=== PATIENT | female | born 1945 | race Caucasian/White ===

== ENCOUNTER → 2017-10-15 | Outpatient (CLI) | payer OTHER ==
[2017-10-15 13:21] LABS: BLOOD UREA NITROGEN 22 mg/dl (7-18); BUN/CREATININE RATIO 20.1 (10-20); CALCIUM 9.3 mg/dl (8.5-10.1); CARBON DIOXIDE 27 mmol/L (21-32); CHLORIDE 107 mmol/L (98-107); CHOLESTEROL 202 mg/dl (0-200); CREATININE 1.07 mg/dl (0.60-1.20); GLUCOSE 92 mg/dl (70-99); POTASSIUM 4.3 mmol/L (3.5-5.1); SODIUM 139 mmol/L (136-145)
[2017-10-15 13:25] LABS: CHOLESTEROL/HDL RATIO 3.9; HDL CHOLESTEROL 52 mg/dl; LDL CHOLESTEROL CALCULATED 113 mg/dl; TRIGLYCERIDES 186 mg/dl (0-150); VERY LOW DENSITY LIPOPROT CALC 37 mg/dl
== END | disposition home or self-care (01) ==
LOC: C.LABPBG 09:57
PROVIDERS: ATTEND Family Medicine
DX: E78.5 Hyperlipidemia, unspecified (principal); I10 Essential (primary) hypertension

== ENCOUNTER → 2018-03-12 | Outpatient (CLI) | payer OTHER | END | disposition home or self-care (01) | LOC: C.LABSPEC 17:05 | PROVIDERS: ATTEND Family Medicine | DX: R39.9 Unspecified symptoms and signs involving the genitourinary system (principal) ==

== ENCOUNTER 2025-02-19 17:19 | Inpatient (IN) ==
[2025-02-19 19:02] LABS: Appearance Urine Clear (Clear); Bacteria Urine Automated 4+ (None Seen); Bilirubin Urine Negative (Negative); Blood Urine 2+ (Negative); Color Urine Yellow; Glucose Urine UA Negative (Negative); Ketones Urine Negative (Negative); Leukocyte Esterase Urine 3+ (Negative); Nitrite Urine Positive (Negative); Protein Urine Negative (Negative); Specific Gravity Urine 1.019 (1.000-1.030); Urobilinogen Urine Negative (Negative); WBC Urine Automated >50 /hpf (0-5)
[2025-02-19 19:02] LABS: Basophils # (auto) 0.04 K/uL (0.00-0.20); Basophils % (auto) 0.3 %; Eosinophils % (auto) 1.7 %; Hematocrit (blood only) 38.7 % (37.0-47.0); Hemoglobin 12.8 g/dl (12.0-16.0); Immature Granulocytes # (auto) 0.03 K/uL (0.01-0.20); Immature Granulocytes % (auto) 0.3 %; Lymphocytes % (auto) 8.6 %; Mean Corpuscular Hemoglobin 30.1 pg (25.0-34.0); Mean Corpuscular Hgb Conc 33.1 g/dL (32.0-36.0); Mean Corpuscular Volume 91.1 fL (80.0-100.0); Mean Platelet Volume 9.6 fL (9.4-12.4); Monocytes % (auto) 7.8 %; Neutrophils # (auto) 9.43 K/uL (1.40-6.50); Neutrophils % (auto) 81.3 %; Platelet Count 204 K/uL (130-400); RDW Coefficient of Variation 13.7 % (11.5-14.5); RDW Standard Deviation 45.6 fL (36.4-46.3); Red Blood Count 4.25 M/uL (4.20-5.40)
[2025-02-19 19:07] LABS: Alanine Aminotransferase 11 U/L (7-52); Albumin Globulin Ratio 1.4 (0.9-2); Albumin Level 4.9 gm/dl (3.4-5.0); Alkaline Phosphatase 71 U/L (34-104); Anion Gap 10 (3-11); Aspartate Aminotransferase 17 U/L (13-39); BUN Creatinine Ratio 25.9 (10-20); Bilirubin,Total 0.4 mg/dl (0.2-1.0); Blood Urea Nitrogen 29 mg/dl (6-23); Calcium 9.5 mg/dl (8.6-10.3); Carbon Dioxide 21 mmol/L (21-32); Chloride 108 mmol/L (98-107); Creatinine Clr Calc Pharmacy 35.2 ml/min; Globulin 3.4 gm/dl (2.5-4.0); Glucose 102 mg/dl (70-99(Fasting)); Lipase 35 U/L (11-82); Potassium 3.7 mmol/L (3.5-5.1); Sodium 139 mmol/L (136-145); Total Protein 8.3 gm/dl (6.0-8.3)
[2025-02-19 19:14] LABS: Troponin I High Sensitivity < 2.3 pg/ml (0-14)
--- NOTE | 2025-02-19 19:26 | Emergency Department Note ---
Impression & Plan Acute GI bleeding, Syncope ED Provider Note Diagnosis: Syncope, GI bleed Disposition: Admission CHIEF COMPLAINT: GI bleed HPI: Patient is an 79-year-old female presenting with complaint of GI bleeding. Patient states her symptoms started yesterday. Patient states multiple episodes of bowel movements with bright red blood present. Patient denies being on any blood thinners. Patient states this made her lightheaded and she had an episode of passing out at home. Patient denies any chest pain or shortness of breath. Patient having lower abdominal pain at this time. PAST MEDICAL HISTORY: See Below PAST SURGICAL HISTORY: See Below SOCIAL HISTORY: See Below HOME MEDICATIONS: See Below ALLERGIES: See Below VITALS: See Below PHYSICAL EXAMINATION: GENERAL: Well appearing, well nourished, NAD, non-toxic. EYE EXAM: Normal conjunctiva. OROPHARYNX: Moist mucus membranes. Grossly normal dentition. Left TM clear NECK: Supple, LUNGS: Clear to auscultation. Normal chest wall mechanics. HEART: NSR ABDOMEN: Abdomen soft, mild tenderness lower abdomen BACK: No CVA TTP. SKIN: No rashes and no bruising. UPPER EXTREMITIES: Upper extremities are grossly normal LOWER EXTREMITIES: Grossly normal, no edema. NEURO EXAM: A&O x3,, normal speech, moves all 4 extremities PSYCH: Cooperative MEDICAL DECISION MAKING: History obtained from: Patient ER Course: Patient is a 79-year-old female presenting with 24 hours of GI bleeding. Patient states has been having bright red blood per rectum. Patient is not on any blood thinners. Patient is hemodynamically stable. Patient's hemoglobin is normal. Patient while in the emergency room had multiple episodes of bowel movement of bright red blood. Patient had CT scan performed of abdomen pelvis which shows colitis. Patient had a lactate level that was negative. Patient's urinalysis is equivocal. Patient's case discussed with hospital service for admission. They will evaluate the patient and decide on if antibiotics are needed for colitis. Labs (independently interpreted) are significant for: Stable hemoglobin EKG interpretation (independently interpreted): Normal sinus rhythm no ST segment elevation or depression Medications given: Normal saline bolus Consultants: Hospitalist Triage Nursing notes reviewed and agree them. Vital Signs: reviewed and remarkable for: no significant abnormalities Past Med/Surg History Problem List (Updated 02/19/25 @ 21:31 by George Taylor DO) Syncope (Acute) Acute GI bleeding (Acute) Asymptomatic microscopic hematuria Insomnia Stage 3b chronic kidney disease Vitamin D deficiency Benign essential hypertension Hyperlipidemia (Chronic) History of basal cell carcinoma (Acute) CKD (chronic kidney disease) stage 3, GFR 30-59 ml/min (Acute) HTN, goal below 150/90 (Chronic) Medical History Hypertension Surgical History H/O lumpectomy H/O removal of cyst Family History Sister Breast cancer Father Heart disease Other Colon cancer Denies family history of Ovarian cancer Prostate cancer Myocardial infarction Social History Smoking Status: Never smoker Second Hand Exposure: No; Do You Dip or Chew Tobacco: No; Hx Alcohol Use: No Hx Substance Use: No Preferred Language: Andorran Visual Impairment: Partially Limited Hearing Ability: Normal Supervisor Assembling Required: No Beliefs That Will Affect Care: None marital status: / Current Living Situation: Alone current occupational status: retired How many Children do You have: 3 Feels Safe at Home: Yes Childhood Exposure to Second-Hand Smoke: No Diet: regular caffeine: Yes (tea) during the past year weight has: remained stable Dental Care, Regularly: Yes Physical Activity Frequency: Does not Exercise Seatbelt Use: always Sunscreen Use: Yes Do you think of yourself as: straight/heterosexual Allergies Allergies Allergy/AdvReac Type Severity Reaction Status Date / Time No Known Allergies Allergy Verified 02/12/25 13:56 Home Meds Home Medications Medication Instructions Recorded Confirmed biotin 10,000 mcg capsule 10,000 mcg PO DIRECTED 11/07/21 02/19/25 cranberry 500 mg capsule 1,000 mg PO DAILY 05/08/22 02/19/25 Vegetable/Fruit Supplement 1 dose PO DAILY 11/25/23 02/19/25 melatonin 10 mg tablet 10 mg PO HS 01/06/25 02/19/25 keratin 500 mg PO DIRECTED 02/19/25 02/19/25 trazodone 50 mg tablet 50 mg PO HS PRN insomnia 02/19/25 02/19/25 Previous Rx's Medication Instructions Recorded amlodipine 5 mg tablet 5 mg PO DAILY #90 tabs 05/27/24 lisinopril 40 mg tablet 40 mg PO DAILY #90 tabs 02/12/25 Results & Data (ED) Vital Signs Vital Signs - 24 hr 02/19/25 17:21 02/19/25 17:53 02/19/25 18:00 Temperature 36.1 C L Temperature Source Temporal Artery Scan Pulse Rate 106 H 86 Pulse Rate from SpO2 Sensor Respiratory Rate 18 Respiratory Effort / Characteristics Non-Labored Respiratory Depth Normal Blood Pressure 166/77 H 128/66 Blood Pressure Mean 106 110 Pulse Oximetry 96 Oxygen Delivery Method Room Air Sepsis Recent Fever Within 48 Hours No Sepsis New/Unexplained Change in Mental Status No Sepsis Action Taken by Nursing No Action Required 02/19/25 18:00 02/19/25 18:12 02/19/25 18:30 Temperature Temperature Source Pulse Rate 83 93 H Pulse Rate from SpO2 Sensor 82 93 H Respiratory Rate 20 18 Respiratory Effort / Characteristics Respiratory Depth Blood Pressure 145/70 H Blood Pressure Mean 114 Pulse Oximetry 96 97 Oxygen Delivery Method Sepsis Recent Fever Within 48 Hours Sepsis New/Unexplained Change in Mental Status Sepsis Action Taken by Nursing 02/19/25 18:41 02/19/25 19:36 02/19/25 20:15 Temperature Temperature Source Pulse Rate 82 87 Pulse Rate from SpO2 Sensor 84 87 Respiratory Rate 21 20 Respiratory Effort / Characteristics Respiratory Depth Blood Pressure 139/75 148/66 H Blood Pressure Mean 96 93 Pulse Oximetry 97 97 95 Oxygen Delivery Method Room Air Room Air Room Air Sepsis Recent Fever Within 48 Hours Sepsis New/Unexplained Change in Mental Status Sepsis Action Taken by Nursing 02/19/25 20:30 Temperature Temperature Source Pulse Rate 90 Pulse Rate from SpO2 Sensor Respiratory Rate 16 Respiratory Effort / Characteristics Respiratory Depth Blood Pressure 138/63 Blood Pressure Mean 83 Pulse Oximetry 96 Oxygen Delivery Method Room Air Sepsis Recent Fever Within 48 Hours Sepsis New/Unexplained Change in Mental Status Sepsis Action Taken by Nursing Laboratory Data 02/19/25 17:45 02/19/25 17:45 Lab Results 02/19/25 02/19/25 02/19/25 Range/Units 17:45 17:47 20:59 WBC 11.60 H (4.8-10.8) K/ul RBC 4.25 (4.20-5.40) M/uL Hgb 12.8 (12.0-16.0) g/dl Hct 38.7 (37.0-47.0) % MCV 91.1 (80.0-100.0) fL MCH 30.1 (25.0-34.0) pg MCHC 33.1 (32.0-36.0) g/dL RDW Std Deviation 45.6 (36.4-46.3) fL RDW Coeff of Neptali 13.7 (11.5-14.5) % Plt Count 204 (130-400) K/uL MPV 9.6 (9.4-12.4) fL Immature Gran % (Auto) 0.3 % Neut % (Auto) 81.3 % Lymph % (Auto) 8.6 % [place] % (Auto) 7.8 % Eos % (Auto) 1.7 % Baso % (Auto) 0.3 % Neut # (Auto) 9.43 H (1.40-6.50) K/uL Lymph # (Auto) 1.00 L (1.20-3.40) K/uL [place] # (Auto) 0.90 H (0.11-0.59) K/uL Eos # (Auto) 0.20 (0.00-0.50) K/uL Baso # (Auto) 0.04 (0.00-0.20) K/uL Immature Gran # (Auto) 0.03 (0.01-0.20) K/uL PT Cancelled INR Cancelled Sodium 139 (136-145) mmol/L Potassium 3.7 (3.5-5.1) mmol/L Chloride 108 H (98-107) mmol/L Carbon Dioxide 21 (21-32) mmol/L Anion Gap 10 (3-11) BUN 29 H (6-23) mg/dl Creatinine 1.12 (0.6-1.2) mg/dl Est Cr Clr Drug Dosing 35.2 ml/min eGFR 49.40 BUN/Creatinine Ratio 25.9 H (10-20) Glucose 102 H (70-99(Fasting)) mg/dl Lactate 0.6 (0.4-2.0) mmol/L Calcium 9.5 (8.6-10.3) mg/dl Total Bilirubin 0.4 (0.2-1.0) mg/dl AST 17 (13-39) U/L ALT 11 (7-52) U/L Alkaline Phosphatase 71 (34-104) U/L Troponin I High Sens < 2.3 (0-14) pg/ml Total Protein 8.3 (6.0-8.3) gm/dl Albumin 4.9 (3.4-5.0) gm/dl Globulin 3.4 (2.5-4.0) gm/dl Albumin/Globulin Ratio 1.4 (0.9-2) Lipase 35 (11-82) U/L Urine Color Yellow Urine Appearance Clear (Clear) Urine pH 5.0 (4.5-7.5) Ur Specific [place] 1.019 (1.000-1.030) Urine Protein Negative (Negative) Urine Glucose (UA) Negative (Negative) Urine Ketones Negative (Negative) Urine Blood 2+ H (Negative) Urine Nitrite Positive A (Negative) Urine Bilirubin Negative (Negative) Urine Urobilinogen Negative (Negative) Ur Leukocyte Esterase 3+ H (Negative) Urine WBC (Auto) >50 H (0-5) /hpf Urine RBC (Auto) 11-20 H (0-2) /hpf U Hyaline Cast (Auto) 3-5 H (0-2) /lpf U Epithel Cells (Auto) 6-10 H (0-2) /hpf Urine Bacteria (Auto) 4+ H (None Seen) Blood Type A Positive Administered Medications Discontinued Medications Acetaminophen (Acetaminophen 325 Mg Tab) 650 mg PO NOW STA Stop: 02/19/25 21:16 Last Admin: 02/19/25 21:24 Dose: 650 mg Documented By: ABHISHEK Sodium Chloride (Nss) 1,000 mls @ 999 mls/hr IV .Q1H1M STA Stop: 02/19/25 19:38 Last Infusion: 02/19/25 21:24 Dose: Infused Documented By: Admin: 02/19/25 19:36 Dose: 999 mls/hr Documented By: CARLIE Ioversol (Optiray 320 100ml) 92 ml IV ONCE ONE Stop: 02/19/25 19:52 Last Admin: 02/19/25 19:51 Dose: 92 ml Documented By: EDK Imaging Data Radiologist's Impression: Abdomen/Pelvis CT 02/19/25 18:38 EXAM: CT Abdomen and Pelvis With Intravenous Contrast INDICATION: Abdominal pain. Bright red blood per rectum this morning. Weakness. TECHNIQUE: Axial computed tomography images of the abdomen and pelvis with intravenous contrast. Sagittal and coronal reformatted images were created and reviewed. This CT exam was performed using one or more of the following dose reduction techniques: automated exposure control, adjustment of the mA and/or kV according to patient size, and/or use of iterative reconstruction technique. CONTRAST: 92ml of Optiray 320 was administered intravenously. COMPARISON: No relevant prior studies available. FINDINGS: Limitations: None. Lung bases: Minimal scarring in the lung bases. Tiny granuloma in the right lower lobe. Pleural space: No basilar pleural effusion. Heart: No abnormality noted. Mediastinum: No abnormality noted. ABDOMEN: Liver: No abnormality noted. Gallbladder and bile ducts: There may be a very tiny gallstone. No ductal dilatation or calcification. Pancreas: Homogeneous enhancement. No mass, inflammation or ductal dilation. Spleen: Innumerable granulomata noted in the spleen which is normal size. Adrenals: No significant abnormality noted. Kidneys and ureters: Normal enhancement. No mass, hydronephrosis or visualized stone. Stomach and bowel: There are innumerable diverticula in the left colon most numerous in the sigmoid. The colon is moderately thickened circumferentially from the splenic flexure to the sigmoid. Mild pericolonic inflammation about the left colon noted. No pneumatosis or obstruction. No definite acute gastrointestinal hemorrhage. PELVIS: Appendix: No findings to suggest acute appendicitis. Bladder: No filling defects to suggest mass or large stone. No inflammation. Reproductive: Incidental irregular cyst in this region of the cervix likely a complex nabothian cyst. ABDOMEN and PELVIS: Intraperitoneal space: No free air. No significant fluid collection. Bones/joints: No acute changes. Soft tissues: Umbilical hernia containing fat. Vasculature: Atherosclerotic calcification of the aorta and branches. No aneurysm. Lymph nodes: No pathologically enlarged lymph nodes. IMPRESSION: 1. There is moderate circumferential thickening from the splenic flexure to the sigmoid colon most likely reflecting infectious colitis rather than long segment diverticulitis. Ischemic colitis not completely excluded but thought less likely. There is no perforation, abscess or obstruction. 2. There may be a tiny gallstone. ACT 112: Positive. There are findings on this exam that require communication between the performing entity and the patient following Patient Test Result Information Act ([place] ACT 112) guidelines. Electronically signed by Sunni Camargo 02-19-2025 8:25 PM Discharge Plan Visit Data Chief Complaint: Rectal Bleed Stated Complaint: BLEEDING OUT MY BOWELS ED Provider: George Taylor Discharge Problem: Acute GI bleeding, Syncope Forms Stand Alone Forms: [facility] Prescriptions Prescriptions: No Action cranberry 500 mg capsule 1,000 mg PO DAILY Rx Instructions: otc unable to verify administer with meals Vegetable/Fruit Supplement 1 dose PO DAILY Rx Instructions: otc unable to verify melatonin 10 mg tablet 10 mg PO HS Rx Instructions: also takes 5 mg with it 02/19-otc unable to verify biotin 10,000 mcg capsule 10,000 mcg PO DIRECTED Rx Instructions: otc unable to verify amlodipine 5 mg tablet 5 mg PO DAILY Qty: 90 3RF lisinopril 40 mg tablet 40 mg PO DAILY Qty: 90 1RF trazodone 50 mg tablet 50 mg PO HS PRN (Reason: insomnia) Rx Instructions: TAKE 1 TABLET BY MOUTH AT BEDTIME NEEDED FOR SLEEP PRN; keratin 500 mg PO DIRECTED Rx Instructions: otc unable to verify Referrals Referrals: Livier Horn MD [Primary Care Provider] -
[2025-02-19] MEDS: SODIUM CHLORIDE 0.9% 1,000 ML IV STA (19:36)
[2025-02-19] MEDS: OPTIRAY 320 100ml IV ONE (19:51)
--- NOTE | 2025-02-19 20:25 | CT Scan Report ---
EXAM: CT Abdomen and Pelvis With Intravenous Contrast INDICATION: Abdominal pain. Bright red blood per rectum this morning. Weakness. TECHNIQUE: Axial computed tomography images of the abdomen and pelvis with intravenous contrast. Sagittal and coronal reformatted images were created and reviewed. This CT exam was performed using one or more of the following dose reduction techniques: automated exposure control, adjustment of the mA and/or kV according to patient size, and/or use of iterative reconstruction technique. CONTRAST: 92ml of Optiray 320 was administered intravenously. COMPARISON: No relevant prior studies available. FINDINGS: Limitations: None. Lung bases: Minimal scarring in the lung bases. Tiny granuloma in the right lower lobe. Pleural space: No basilar pleural effusion. Heart: No abnormality noted. Mediastinum: No abnormality noted. ABDOMEN: Liver: No abnormality noted. Gallbladder and bile ducts: There may be a very tiny gallstone. No ductal dilatation or calcification. Pancreas: Homogeneous enhancement. No mass, inflammation or ductal dilation. Spleen: Innumerable granulomata noted in the spleen which is normal size. Adrenals: No significant abnormality noted. Kidneys and ureters: Normal enhancement. No mass, hydronephrosis or visualized stone. Stomach and bowel: There are innumerable diverticula in the left colon most numerous in the sigmoid. The colon is moderately thickened circumferentially from the splenic flexure to the sigmoid. Mild pericolonic inflammation about the left colon noted. No pneumatosis or obstruction. No definite acute gastrointestinal hemorrhage. PELVIS: Appendix: No findings to suggest acute appendicitis. Bladder: No filling defects to suggest mass or large stone. No inflammation. Reproductive: Incidental irregular cyst in this region of the cervix likely a complex nabothian cyst. ABDOMEN and PELVIS: Intraperitoneal space: No free air. No significant fluid collection. Bones/joints: No acute changes. Soft tissues: Umbilical hernia containing fat. Vasculature: Atherosclerotic calcification of the aorta and branches. No aneurysm. Lymph nodes: No pathologically enlarged lymph nodes. IMPRESSION: 1. There is moderate circumferential thickening from the splenic flexure to the sigmoid colon most likely reflecting infectious colitis rather than long segment diverticulitis. Ischemic colitis not completely excluded but thought less likely. There is no perforation, abscess or obstruction. 2. There may be a tiny gallstone. ACT 112: Positive. There are findings on this exam that require communication between the performing entity and the patient following Patient Test Result Information Act ([place] ACT 112) guidelines. Electronically signed by Sunni Camargo 02-19-2025 8:25 PM
[2025-02-19] MEDS: ACETAMINOPHEN 325 MG TAB PO STA (21:24)
[2025-02-19 21:57] LABS: Prothrombin Time 11.1 Seconds (9.0-12.0)
[2025-02-19] MEDS ORDERED: ONDANSETRON INJ 2 MG/ML 2 ML VIAL IV PRN (23:07)
--- OUTSIDE RECORDS SUMMARY | 2025-02-19 23:15 | External Medical Summary | Summary of Care ---
Author Name Unknown Organization [facility] Address [address] [place] [address] Phone [phone] Care Team Providers Care Sap Crm Developer Name Role Phone Livier Horn MD Primary Care Provider Reason for Visit * Reason Onset Date Comments Advice 02/04/2025 Encounter Details Date Type Department Care Team (Late st Contact Info) Description 02/04/2025 Telephone MOHS Surgery [facility] [address] [place] [address] Services, Scheduling [address] [place] [address] Advice Allergies No known active allergiesdocumented as of this encounter (statuses as of 02/17/2025) Medications traZODone (DESYREL) 50 MG TabletIndication s:Insomnia, unspecified Take 1 Tab by mouth bedtime. 30 Tab 5 5 Active Lisinopril 40 MG Tablet One pill by mouth once a day for blood pressure. To pharmacy: Please discontinue 20mg dose. TZ 30 Tab 5 5 Active spironolactone (ALDACTONE) 25 MG Tablet Take 25 mg by mouth daily. Active amLODIPine (NORVASC) 5 MG Tablet Take 5 mg by mouth daily. Active Biotin 1000 MCG Tablet Take 1,000 mcg by mouth daily. Active documented as of this encounter (statuses as of 02/17/2025) Active Problems Problem Noted Date Diagnosed Date Basal cell carcinoma of skin of other parts of f maribel 09/10/2011 Overview (08/12/2017): ICD-10 update of inactive term Insomnia 03/27/2007 Overview (08/12/2017): ICD-10 update of inactive term LOCAL SUPRFICIAL SWELLNG 06/22/2004 GENERAL OSTEOARTHROSIS 02/18/2003 HTN, goal below 140/90 11/30/1996 Menopause Mucous polyp of cervix documented as of this encounter (statuses as of 02/17/2025) Resolved Problems Problem Noted Date Diagnosed Date Resolved Date Acute cystitis 08/02/2010 09/24/2024 Overview (09/24/2024): historical ADVANCE DIRECTIVE INFORMATION 03/21/2006 09/14/2024 Overview (03/21/2006): No, Advance Directive brochure given to patient at prior appointment. Other acute otitis externa 0 01/06/2009 Overview (01/06/2009): Resolved per Benign Acute Dxs Protocol #3 documented as of this encounter (statuses as of 02/17/2025) Immunizations Name Administration Dates Next Due Pneumococcal Polysaccharide PPV23 (Pneumovax) 03/05/2011(Deferred: Patient Refused) Seasonal Influenza Vac., MDV , IM, 0.5 mL (Fluzone) 03/05/2011(Deferred: Patient Refused) TDAP, Age 7 and older, IM (Adacel) 03/30/2008 documented as of this encounter Social History Tobacco Use Types Packs/Day Years Used Date Smoking Tobacco: Never Smokeless Tobacco: Never Alcohol Use Standard Drinks/Week Comments No 0 (1 standard drink = 0.6 oz pur e alcohol) Comments No Sex and Gender Information Value Date Recorded Sex Assigned at Not on file Legal Sex Female 5:54 AM EST Gender Identity Not on file Sexual Orientation Not on file documented as of this encounter Miscellaneous Notes * Telephone Encounter - Denise Alcantar OSA - 02/17/2025 8:59 AM EDT Pt calling regarding the Mohs Surgery appointment. Please call back on home #. Loni belcher * Telephone Encounter - Gosia Page OSA - 02/15/2025 2:03 PM EDT Patient needs to be called on 02/16/2025 between 7:30AM and 12PM * Telephone Encounter - Atul Abarca OSA - 02/04/2025 10:28 AM EDT Patient called in to schedule her mohs appointment. Patient will be away this afternoon. Please advise Beset call back [phone] documented in this encounter Plan of Treatment Health Maintenance Due Date Last Done Comments Depression Screening 1957 Albumin/Creatinine Ratio 1961 Pneumococcal Vaccine: 50+ Years (1 of 1 - PCV) 1993 Zoster Vaccines (1 of 2) 1993 GFR 10/23/2017 10/23/2016, 09/13, 12/29/2014, Additional history exists DTap/Tdap Vaccines (2 - Td or Tdap) 03/30/2018 03/30/2008 DXA Scan 06/13/2023 06/13/2016, 07/12, 05/09/2009 COVID-19 Vaccine ( season) 2024 Influenza Vaccine (FLU shot) (Season Ended) 2025 HPV (Gardasil) Vaccine Aged Out No lo nger eligible based on patient's age to complete this topic Hepatitis B Vaccine Aged Out No longe r eligible based on patient's age to complete this topic MENINGOCOCCAL (MENACTRA/MENVEO) Aged Out No longer eligible based on patient's age to complete this topic Meningitis B Vaccine (Bexsero/Trumemba) Aged Out No longer eligible based on patient's age to complete this topic documented as of this encounter Medical Devices Not on filedocumented as of this encounter Care Teams Sap Crm Developer Relationship Specialty Start Date End Date Livier Horn MD [address] [place] [address] [place] [address] PCP - General Family Medicine 07/12/15 documented as of this encounter
--- OUTSIDE RECORDS SUMMARY | 2025-02-19 23:15 | External Medical Summary | Summary of Care ---
Author Name Unknown Organization [facility] Address [address] [place] [address] Phone [phone] Care Team Providers Care District Sales Manager Name Role Phone Livier Horn MD Primary Care Provider Reason for Visit * Reason Onset Date Comments Advice 02/04/2025 Encounter Details Date Type Department Care Team (Late st Contact Info) Description 02/04/2025 Telephone [facility] [address] [place], [place] [id number] Services, Scheduling [address] [place] [address] Advice Allergies No known active allergiesdocumented as of this encounter (statuses as of 02/15/2025) Medications traZODone (DESYREL) 50 MG TabletIndication s:Insomnia, [...] as of this encounter (statuses as of 02/15/2025) Active Problems Problem Noted Date Diagnosed Date Basal cell carcinoma of skin of other parts of f maribel 09/10/2011 Overview (08/12/2017): ICD-10 update of inactive term Insomnia 03/27/2007 Overview (08/12/2017): ICD-10 update of inactive term LOCAL SUPRFICIAL SWELLNG 06/22/2004 GENERAL OSTEOARTHROSIS 02/18/2003 HTN, goal below 140/90 11/30/1996 Menopause Mucous polyp of cervix documented as of this encounter (statuses as of 02/15/2025) Resolved Problems Problem Noted Date Diagnosed Date Resolved Date Acute cystitis 08/02/2010 09/24/2024 Overview (09/24/2024): historical ADVANCE DIRECTIVE INFORMATION 03/21/2006 09/14/2024 Overview (03/21/2006): No, Advance Directive brochure given to patient at prior appointment. Other acute otitis externa 0 01/06/2009 Overview (01/06/2009): Resolved per Benign Acute Dxs Protocol #3 documented as of this encounter (statuses as of 02/15/2025) Immunizations Name Administration Dates Next Due Pneumococcal [...] encounter Miscellaneous Notes * Telephone Encounter - Gosia Page OSA - 02/15/2025 2:03 PM EDT Patient needs to be called on 02/16/2025 between 7:30AM and 12PM * Telephone Encounter - Atul Abarca OSA - 02/04/2025 10:28 AM EDT Patient called in to schedule her mohs appointment. Patient will be away this afternoon. Please advise Beset call back [phone] documented in this encounter Plan of Treatment Health Maintenance Due Date Last Done Comments Depression Screening 1955 Albumin/Creatinine Ratio 1961 Pneumococcal Vaccine: 50+ Years (1 of 1 - PCV) 1993 Zoster Vaccines (1 of 2) 1993 GFR 10/23/2017 10/23/2016, 09/13, 12/29/2014, Additional history exists DTap/Tdap Vaccines (2 - Td or Tdap) 03/30/2018 03/30/2008 DXA Scan 06/13/2023 06/13/2016, 07/12, 05/09/2009 COVID-19 Vaccine ( - season) 2024 Influenza Vaccine (FLU shot) (Season [...] filedocumented as of this encounter Care Teams District Sales Manager Relationship Specialty Start Date End Date Livier Horn MD [address] [place] [address] PCP - General Family Medicine 07/12/15 documented as of this encounter
--- OUTSIDE RECORDS SUMMARY | 2025-02-19 23:15 | External Medical Summary | Summary of Care ---
Author Name Unknown Organization [facility] Address [address] [place] [address] Phone [phone] Care Team Providers Care Construction Sales Representative Name Role Phone Livier Horn MD Primary Care Provider Reason for Visit * Reason Onset Date Comments Advice 02/04/2025 Encounter Details Date Type Department Care Team (Late st Contact Info) Description 02/04/2025 Telephone MOHS Surgery [facility] [address] [place] [address] Services, Scheduling [address] [place] [address] Advice Allergies No known active allergiesdocumented as [...] Telephone Encounter - Gosia Page OSA - 02/17/2025 2:43 PM EDT LMOM for patient to call back to schedule Mohs Surgery * Telephone Encounter - Simi Alcantar OSA - 02/17/2025 8:59 AM EDT Pt calling regarding the Mohs Surgery appointment. Please call back on home #. [phone] [id number] * Telephone Encounter - Gosia Page OSA - 02/15/2025 2:03 PM EDT Patient needs to be called on 02/16/2025 between 7:30AM and 12PM * Telephone Encounter - Atul Abarca OSA - 02/04/2025 10:28 AM EDT Patient called in to schedule her mohs appointment. Patient will be away this afternoon. Please advise Beset call back [phone] documented in this encounter Plan of Treatment Upcoming Encounters Date Type Department Care Team (Late st Contact Info) Description 03/17/2025 8:15 AM EDT Office Visit MOHS Surgery [facility] [address] [place] [address] Ernestina Bocanegra MD [address] [place] [phone] Health Maintenance Due Date Last Done Comments [...] filedocumented as of this encounter Care Teams Construction Sales Representative Relationship Specialty Start Date End Date Livier Horn MD [address] [place] [address], [place] [address] PCP - General Family Medicine 07/12/15 documented as of this encounter
[2025-02-19] MEDS: traZODone HCL 50 MG TAB PO PRN (23:49)
[2025-02-19] MEDS: MELATONIN 3 MG TAB PO SCH (23:50)
[2025-02-20 00:35] LABS: Hematocrit (blood only) 33.2 % (37.0-47.0); Hemoglobin 11.2 g/dl (12.0-16.0)
--- NOTE | 2025-02-20 01:08 | History & Physical Report ---
Date of Service February 19, 2025 Assessment & Plan (1) Acute GI bleeding: (2) Benign essential hypertension: Plan 79-year-old female with history of hypertension, hyperlipidemia, CKD presenting with lower abdominal pain and passage of bright red blood per rectum. Patient hemodynamically stable. Hgb = 12.8, HCT = 38.7. BUN = 29 #Acute GI bleedsuspect lower GI bleed. Patient is hemodynamically stable at present. Hgb = 12.8, HCT = 38.7. CT with findings as above, significant for segment of colon with possible colitis versus diverticulitis. Ischemic colitis not completely excluded but thought less likely. Lactate is within normal limits. Patient has history of diverticulosis with diverticular bleed in 2011. Admit to PCU Maintain n.p.o. Maintain 2 large-bore IVs Trend hemoglobin and hematocrit every 8 hours. Transfuse for ongoing bleed, symptomatic anemia or hemoglobin less than 8. Consent obtained is in on chart Stool PCR ordered Will initiate Zosyn 4.5 g IV every 8 for now given possibility of acute diverticulitis. Patient with mild leukocytosis with WBC = 11.6 with elevated neutrophil to lymphocyte ratio. Likely secondary to stress from acute bleed however, will cover for now Zofran as needed for nausea Tylenol as needed for pain GI consultation appreciated #Hypertensionblood pressure stable Will hold amlodipine and lisinopril for now in setting of active bleed Continue to monitor Admission and Anticipated Discharge Date Admission Date: February 19, 2025 History of Present Illness Chief Complaint: GI bleed Primary Care Provider: Livier Horn MD Claudia Wagner is an 79-year-old female with history of hypertension, hyperlipidemia, CKD presenting with diarrhea and bright red blood per rectum. Patient reports that on 02/19/2025 AM at 01:00 she woke with crampy, lower abdominal pain. She went to the bathroom and had watery diarrhea. She did not check to see if there is blood in her stool at that time. She continued to have severe lower abdominal pain and had a syncopal event which patient thinks is secondary to her pain. She called her daughter who came to the house. Patient then had a bowel movement that was liquid stool with bright red blood. Patient continued to have crampy lower abdominal pain followed by additional bloody bowel movements. Cramping relieved by bowel movement. Patient denies chest pain, shortness of breath, lightheadedness. Denies nausea/vomiting/hematemesis or coffee-ground emesis. No recent steroid use, NSAID use, antiplatelet or anticoagulation. No alcohol use. Patient does report having a lower GI bleed in 2011 secondary to diverticulosis. Last colonoscopy performed in 2016, unremarkable In the ER patient afebrile, hemodynamically stable (heart rate mildly elevated at 90) ER course: normal saline x 1 L Allergies Allergy/AdvReac Type Severity Reaction Status Date / Time No Known Allergies Allergy Verified 02/12/25 13:56 Home Medications Medication Instructions Recorded Confirmed Type biotin 10,000 mcg capsule 10,000 mcg PO DIRECTED 11/07/21 02/19/25 History cranberry 500 mg capsule 1,000 mg PO DAILY 05/08/22 02/19/25 History Vegetable/Fruit Supplement 1 dose PO DAILY 11/25/23 02/19/25 History amlodipine 5 mg tablet 5 mg PO DAILY #90 tabs 05/27/24 02/19/25 Rx melatonin 10 mg tablet 10 mg PO HS 01/06/25 02/19/25 History lisinopril 40 mg tablet 40 mg PO DAILY #90 tabs 02/12/25 02/19/25 Rx keratin 500 mg PO DIRECTED 02/19/25 02/19/25 History trazodone 50 mg tablet 50 mg PO HS PRN insomnia 02/19/25 02/19/25 History Past Med/Surg History Problem List Syncope (Acute) Acute GI bleeding (Acute) Asymptomatic microscopic hematuria Insomnia Stage 3b chronic kidney disease Vitamin D deficiency Benign essential hypertension Hyperlipidemia (Chronic) History of basal cell carcinoma (Acute) CKD (chronic kidney disease) stage 3, GFR 30-59 ml/min (Acute) HTN, goal below 150/90 (Chronic) Medical History Hypertension Surgical History H/O lumpectomy H/O removal of cyst Family History Sister Breast cancer Father Heart disease Other Colon cancer Denies family history of Ovarian cancer Prostate cancer Myocardial infarction Social History Smoking Status: Never smoker Second Hand Exposure: No; Do You Dip or Chew Tobacco: No; Hx Alcohol Use: No Hx Substance Use: No Preferred Language: Citizen Of [place] Communication Ability: Effective Visual Impairment: Partially Limited Hearing Ability: Normal [place] Required: No Beliefs That Will Affect Care: None marital status: / Current Living Situation: Alone current occupational status: retired How many Children do You have: 3 Other Information That Helps Us Care for You: No Feels Safe at Home: Yes Safety Concerns: Feels Safe At This Time Childhood Exposure to Second-Hand Smoke: No Diet: regular caffeine: Yes (tea) during the past year weight has: remained stable Dental Care, Regularly: Yes Physical Activity Frequency: Does not Exercise Seatbelt Use: always Sunscreen Use: Yes Do you think of yourself as: straight/heterosexual Assistive Devices: Glasses Review of Systems Review of Systems: All systems reviewed & are unremarkable except as noted in HPI & below Physical Exam Physical Exam: General: patient resting comfortably, NAD, non-toxic in appearance, AA&O x 4 Skin: warm, dry, intact, no rashes or lesions HEENT: NC/AT, PERRL, EOMI, anicteric sclera, conjunctiva without injection, external ear normal to inspection and nontender, nares patent, moist mucus membranes, dentition intact, no oropharyngeal lesions, neck supple, trachea midline, no LAD, no thyromegaly, no JVD Heart: +S1/S2, regular, no m/r/g Lungs: equal air entry bilaterally, no rales/rhonchi/wheezes Abd: +BS, soft, NT/ND, no masses/organomegaly/ascites Ext: warm, 2+ pulses in UE/LE bilaterally, no clubbing/cyanosis or edema Neuro: nonfocal, patient AA&O x 4, speech intact, no facial droop, moving all extremities on command with equal strength 5/5 Results & Data Results & Data Vital Signs (Past 12 Hours) Vital Signs Temp Pulse Pulse Resp BP BP Pulse Ox 02/20/25 00:20 97 H 20 139/70 95 02/19/25 23:45 36.5 C 101 H 20 161/76 H 95 02/19/25 23:28 93 H 02/19/25 23:05 36.5 C 101 H 20 161/76 H 95 02/19/25 23:05 36.5 C 101 H 20 161/76 H 95 02/19/25 22:30 102 H 18 128/67 93 02/19/25 22:00 103 H 20 96 02/19/25 21:42 90 02/19/25 20:30 90 16 138/63 96 02/19/25 20:15 87 20 148/66 H 95 02/19/25 19:36 82 21 139/75 97 02/19/25 18:41 97 02/19/25 18:30 145/70 H 02/19/25 18:12 93 H 18 97 02/19/25 18:00 83 20 96 02/19/25 18:00 128/66 02/19/25 17:53 86 02/19/25 17:21 36.1 C L 106 H 18 166/77 H 96 O2 Del Method 02/20/25 00:20 Room Air 02/19/25 23:45 Room Air 02/19/25 23:28 02/19/25 23:05 Room Air 02/19/25 23:05 Room Air 02/19/25 22:30 Room Air 02/19/25 22:00 Room Air 02/19/25 21:42 02/19/25 20:30 Room Air 02/19/25 20:15 Room Air 02/19/25 19:36 Room Air 02/19/25 18:41 Room Air 02/19/25 18:30 02/19/25 18:12 02/19/25 18:00 02/19/25 18:00 02/19/25 17:53 02/19/25 17:21 Room Air Laboratory Results Laboratory Results WBC 11.60 K/ul (4.8-10.8) H 02/19/25 17:45 RBC 4.25 M/uL (4.20-5.40) 02/19/25 17:45 Hgb 11.2 g/dl (12.0-16.0) L 02/20/25 00:17 Hct 33.2 % (37.0-47.0) L 02/20/25 00:17 MCV 91.1 fL (80.0-100.0) 02/19/25 17:45 MCH 30.1 pg (25.0-34.0) 02/19/25 17:45 MCHC 33.1 g/dL (32.0-36.0) 02/19/25 17:45 RDW Std Deviation 45.6 fL (36.4-46.3) 02/19/25 17:45 RDW Coeff of Neptali 13.7 % (11.5-14.5) 02/19/25 17:45 Plt Count 204 K/uL (130-400) 02/19/25 17:45 MPV 9.6 fL (9.4-12.4) 02/19/25 17:45 Immature Gran % (Auto) 0.3 % 02/19/25 17:45 Neut % (Auto) 81.3 % 02/19/25 17:45 Lymph % (Auto) 8.6 % 02/19/25 17:45 [place] % (Auto) 7.8 % 02/19/25 17:45 Eos % (Auto) 1.7 % 02/19/25 17:45 Baso % (Auto) 0.3 % 02/19/25 17:45 Neut # (Auto) 9.43 K/uL (1.40-6.50) H 02/19/25 17:45 Lymph # (Auto) 1.00 K/uL (1.20-3.40) L 02/19/25 17:45 [place] # (Auto) 0.90 K/uL (0.11-0.59) H 02/19/25 17:45 Eos # (Auto) 0.20 K/uL (0.00-0.50) 02/19/25 17:45 Baso # (Auto) 0.04 K/uL (0.00-0.20) 02/19/25 17:45 Immature Gran # (Auto) 0.03 K/uL (0.01-0.20) 02/19/25 17:45 PT 11.1 Seconds (9.0-12.0) 02/19/25 20:59 INR 1.0 (0.9-1.1) 02/19/25 20:59 Sodium 139 mmol/L (136-145) 02/19/25 17:45 Potassium 3.7 mmol/L (3.5-5.1) 02/19/25 17:45 Chloride 108 mmol/L (98-107) H 02/19/25 17:45 Carbon Dioxide 21 mmol/L (21-32) 02/19/25 17:45 Anion Gap 10 (3-11) 02/19/25 17:45 BUN 29 mg/dl (6-23) H 02/19/25 17:45 Creatinine 1.12 mg/dl (0.6-1.2) 02/19/25 17:45 Est Cr Clr Drug Dosing 35.2 ml/min 02/19/25 17:45 eGFR 49.40 02/19/25 17:45 BUN/Creatinine Ratio 25.9 (10-20) H 02/19/25 17:45 Glucose 102 mg/dl (70-99(Fasting)) H 02/19/25 17:45 Lactate 0.6 mmol/L (0.4-2.0) 02/19/25 20:59 Calcium 9.5 mg/dl (8.6-10.3) 02/19/25 17:45 Total Bilirubin 0.4 mg/dl (0.2-1.0) 02/19/25 17:45 AST 17 U/L (13-39) 02/19/25 17:45 ALT 11 U/L (7-52) 02/19/25 17:45 Alkaline Phosphatase 71 U/L (34-104) 02/19/25 17:45 Troponin I High Sens < 2.3 pg/ml (0-14) 02/19/25 17:45 Total Protein 8.3 gm/dl (6.0-8.3) 02/19/25 17:45 Albumin 4.9 gm/dl (3.4-5.0) 02/19/25 17:45 Globulin 3.4 gm/dl (2.5-4.0) 02/19/25 17:45 Albumin/Globulin Ratio 1.4 (0.9-2) 02/19/25 17:45 Lipase 35 U/L (11-82) 02/19/25 17:45 Urine Color Yellow 02/19/25 17:47 Urine Appearance Clear (Clear) 02/19/25 17:47 Urine pH 5.0 (4.5-7.5) 02/19/25 17:47 Ur Specific [place] 1.019 (1.000-1.030) 02/19/25 17:47 Urine Protein Negative (Negative) 02/19/25 17:47 Urine Glucose (UA) Negative (Negative) 02/19/25 17:47 Urine Ketones Negative (Negative) 02/19/25 17:47 Urine Blood 2+ (Negative) H 02/19/25 17:47 Urine Nitrite Positive (Negative) A 02/19/25 17:47 Urine Bilirubin Negative (Negative) 02/19/25 17:47 Urine Urobilinogen Negative (Negative) 02/19/25 17:47 Ur Leukocyte Esterase 3+ (Negative) H 02/19/25 17:47 Urine WBC (Auto) >50 /hpf (0-5) H 02/19/25 17:47 Urine RBC (Auto) 11-20 /hpf (0-2) H 02/19/25 17:47 U Hyaline Cast (Auto) 3-5 /lpf (0-2) H 02/19/25 17:47 U Epithel Cells (Auto) 6-10 /hpf (0-2) H 02/19/25 17:47 Urine Bacteria (Auto) 4+ (None Seen) H 02/19/25 17:47 Blood Type A Positive 02/19/25 17:45 Antibody Screen NEGATIVE 02/19/25 17:45 Impressions Abdomen/Pelvis CT 02/19/25 18:38 EXAM: CT Abdomen and Pelvis With Intravenous Contrast INDICATION: Abdominal pain. Bright red blood per rectum this morning. Weakness. TECHNIQUE: Axial computed tomography images of the abdomen and pelvis with intravenous contrast. Sagittal and coronal reformatted images were created and reviewed. This CT exam was performed using one or more of the following dose reduction techniques: automated exposure control, adjustment of the mA and/or kV according to patient size, and/or use of iterative reconstruction technique. CONTRAST: 92ml of Optiray 320 was administered intravenously. COMPARISON: No relevant prior studies available. FINDINGS: Limitations: None. Lung bases: Minimal scarring in the lung bases. Tiny granuloma in the right lower lobe. Pleural space: No basilar pleural effusion. Heart: No abnormality noted. Mediastinum: No abnormality noted. ABDOMEN: Liver: No abnormality noted. Gallbladder and bile ducts: There may be a very tiny gallstone. No ductal dilatation or calcification. Pancreas: Homogeneous enhancement. No mass, inflammation or ductal dilation. Spleen: Innumerable granulomata noted in the spleen which is normal size. Adrenals: No significant abnormality noted. Kidneys and ureters: Normal enhancement. No mass, hydronephrosis or visualized stone. Stomach and bowel: There are innumerable diverticula in the left colon most numerous in the sigmoid. The colon is moderately thickened circumferentially from the splenic flexure to the sigmoid. Mild pericolonic inflammation about the left colon noted. No pneumatosis or obstruction. No definite acute gastrointestinal hemorrhage. PELVIS: Appendix: No findings to suggest acute appendicitis. Bladder: No filling defects to suggest mass or large stone. No inflammation. Reproductive: Incidental irregular cyst in this region of the cervix likely a complex nabothian cyst. ABDOMEN and PELVIS: Intraperitoneal space: No free air. No significant fluid collection. Bones/joints: No acute changes. Soft tissues: Umbilical hernia containing fat. Vasculature: Atherosclerotic calcification of the aorta and branches. No aneurysm. Lymph nodes: No pathologically enlarged lymph nodes. IMPRESSION: 1. There is moderate circumferential thickening from the splenic flexure to the sigmoid colon most likely reflecting infectious colitis rather than long segment diverticulitis. Ischemic colitis not completely excluded but thought less likely. There is no perforation, abscess or obstruction. 2. There may be a tiny gallstone. ACT 112: Positive. There are findings on this exam that require communication between the performing entity and the patient following Patient Test Result Information Act ([place] ACT 112) guidelines. Electronically signed by Sunni Camargo 02-19-2025 8:25 PM PG Care Time/CCT Total # of Minutes Spent Total Time Spent with Patient: Total time spent is greater than 50% in coordination of care (as documented) at patient's floor/unit and/or counseling patient: Coding Level of Care Code 90946 INT INP/OBS CARE 3/75MIN Diagnoses Acute GI bleeding K92.2 Benign essential hypertension I10
[2025-02-20] MEDS: 4.5GM X1 IV STA (01:59)
[2025-02-20 04:17] LABS: Adenovirus F 40/41 PCR Not Detected (NotDetected); Astrovirus PCR Not Detected (NotDetected); Campylobacter PCR Not Detected (NotDetected); Cryptosporidium PCR Not Detected (NotDetected); Cyclospora cayetanensis PCR Not Detected (NotDetected); Entamoeba histolytica PCR Not Detected (NotDetected); Enteroaggregative E.coli(EAEC) Not Detected (NotDetected); Enteropathogenic E.coli (EPEC) Not Detected (NotDetected); Enterotoxigenic E.coli (ETEC) Not Detected (NotDetected); Giardia lamblia PCR Not Detected (NotDetected); Norovirus GI/GII PCR Not Detected (NotDetected); Plesiomonas shigelloides PCR Not Detected (NotDetected); Rotavirus A PCR Not Detected (NotDetected); Salmonella PCR Not Detected (NotDetected); Sapovirus PCR Not Detected (NotDetected); Shiga-like Toxin E.coli (STEC) Not Detected (NotDetected); Shigella/Enteroinvasive E.coli Not Detected (NotDetected); Vibrio cholerae PCR Not Detected (NotDetected); Vibrio species PCR Not Detected (NotDetected); Yersinia enterocolitica PCR Not Detected (NotDetected)
[2025-02-20 05:54] LABS: Hematocrit (blood only) 32.2 % (37.0-47.0); Hemoglobin 10.8 g/dl (12.0-16.0); Mean Corpuscular Hemoglobin 30.5 pg (25.0-34.0); Mean Corpuscular Hgb Conc 33.5 g/dL (32.0-36.0); Mean Platelet Volume 9.4 fL (9.4-12.4); Platelet Count 178 K/uL (130-400); RDW Coefficient of Variation 13.6 % (11.5-14.5); RDW Standard Deviation 46.3 fL (36.4-46.3); Red Blood Count 3.54 M/uL (4.20-5.40); White Blood Count 9.08 K/ul (4.8-10.8)
[2025-02-20 06:18] LABS: BUN Creatinine Ratio 18.8 (10-20); Calcium 8.5 mg/dl (8.6-10.3); Creatinine Clr Calc Pharmacy 41.1 ml/min; Potassium 3.8 mmol/L (3.5-5.1)
[2025-02-20] MEDS: PIPERACILLIN/TAZOBACTAM 4.5 GM/100 ML BAG IV SCH (08:06)
--- NOTE | 2025-02-20 08:41 | Hospitalist Progress Note ---
Date of Service February 20, 2025 Assessment & Plan (1) Acute GI bleeding: (2) Benign essential hypertension: Plan 79-year-old female with history of hypertension, hyperlipidemia, CKD presenting with lower abdominal pain and passage of bright red blood per rectum. Patient hemodynamically stable. Hgb = 12.8, HCT = 38.7. BUN = 29 She had similar episode in 2011 when she had diverticulitis. She had colonoscopy in 2017 and pt reports everything was good and she was told she doesn't need another one in the future. #Acute GI bleedsuspect lower GI bleed. - CT with findings as above, significant for segment of colon with possible colitis versus diverticulitis. Ischemic colitis not completely excluded but thought less likely. Lactate is within normal limits. Patient has history of diverticulosis with diverticular bleed in 2011. - cont NPO with ice chips and sips - Hgb trended 12.8 > 10.8, cont to trend at this time - Transfuse for ongoing bleed, symptomatic anemia or hemoglobin less than 8. Consent obtained is in on chart - Stool PCR ordered - cont zosyn for possible acute diverticulitis. Patient with mild leukocytosis with WBC = 11.6 with elevated neutrophil to lymphocyte ratio. Likely secondary to stress from acute bleed however, will cover for now - Zofran as needed for nausea - Tylenol as needed for pain - GI consultation appreciated - IVF x24 hrs #Hypertensionblood pressure stable Will hold amlodipine and lisinopril for now in setting of active bleed Continue to monitor #CKD IIIb - Cr stable - monitor at this time Admission and Anticipated Discharge Date Admission Date: February 19, 2025 Subjective Admitted overnight She had similar episode in 2011 when she had diverticulitis. She had colonoscopy in 2017 and pt reports everything was good and she was told she doesn't need another one in the future. Currently states that she is still having blood mixed with mucous. She is also having lower abdominal pain that feels like menstrual cramps. Review of Systems Review of Systems: Comprehensive ROS neg Physical Exam Physical Exam: Gen: young-appearing elderly female lying in bed comfortably HEENT: NC/AT, anicteric, slightly dry MM Lungs: CTAB CVS: s1s2nl, RRR Abd: nl bowel sounds, mild TTP in the LUQ, no rebound / guarding / rigidity : no coker Ext: no edema Neuro: AAOx3 Psych: calm / cooperative Results & Data Results & Data Vital Signs (Past 12 Hours) Vital Signs Temp Pulse Pulse Resp BP BP Pulse Ox 02/20/25 07:47 36.7 C 78 18 113/68 94 02/20/25 02:54 36.8 C 81 18 112/63 94 02/20/25 00:20 97 H 20 139/70 95 02/19/25 23:45 36.5 C 101 H 20 161/76 H 95 02/19/25 23:28 93 H 02/19/25 23:05 36.5 C 101 H 20 161/76 H 95 02/19/25 23:05 36.5 C 101 H 20 161/76 H 95 02/19/25 22:30 102 H 18 128/67 93 02/19/25 22:00 103 H 20 96 02/19/25 21:42 90 O2 Del Method 02/20/25 07:47 Room Air 02/20/25 02:54 Room Air 02/20/25 00:20 Room Air 02/19/25 23:45 Room Air 02/19/25 23:28 02/19/25 23:05 Room Air 02/19/25 23:05 Room Air 02/19/25 22:30 Room Air 02/19/25 22:00 Room Air 02/19/25 21:42 PG Care Time/CCT Total # of Minutes Spent Total Time Spent with Patient: Total time spent is greater than 50% in coordination of care (as documented) at patient's floor/unit and/or counseling patient: Coding Level of Care Code 34425 SUB INP/OBS CARE 3/50MIN Diagnoses Acute GI bleeding K92.2 Benign essential hypertension I10
[2025-02-20] MEDS: LACTATED RINGER'S 1,000 ML IV SCH (09:55)
--- NOTE | 2025-02-20 11:17 | Gastrointestinal Consultation ---
Date of Consultation February 20, 2025 Assessment & Plan (1) Ischemic colitis: (2) Acute GI bleeding: Clinical presentation, clinical course and CT scan appearance as well as negative stool studies are suggestive of mild acute ischemic colitis. Diverticulitis is unlikely. At this point would start patient on clear liquids, advance diet as tolerated. If stable will discontinue antibiotics. If remains stable would defer colonoscopy for 6-8 weeks until colitis heals. Follow-up with GI office will be arranged. History of Present Illness Reason for Consultation: Acute colitis, likely ischemic. Attending Physician: Jessica Julien MD History of Present Illness Acute onset of lower abdominal pain 2 nights ago associated with small-volume diarrhea, rectal pressure and small amount of rectal bleeding. Denies nausea or vomiting. CT scan of the abdomen and pelvis from yesterday showed moderate circumferential thickening from the splenic flexure to the sigmoid colon most likely reflecting infectious colitis. Hemoglobin decreased from 12.8 to 10.8 with IV hydration. WBC 11.6 yesterday, normalized today. Comprehensive stool panel by PCR is negative. Today the patient is feeling better. Abdominal pain is improving. Still complains of mild diarrhea and small amount of rectal bleeding. The most recent colonoscopy was in 2016. As per patient the study showed colonic diverticula but no polyps. The patient has a history of diverticulitis and diverticular bleeding approximately 10 years ago. Allergies Allergy/AdvReac Type Severity Reaction Status Date / Time No Known Allergies Allergy Verified 02/12/25 13:56 Home Medications Medication Instructions Recorded Confirmed Type biotin 10,000 mcg capsule 10,000 mcg PO DIRECTED 11/07/21 02/19/25 History cranberry 500 mg capsule 1,000 mg PO DAILY 05/08/22 02/19/25 History Vegetable/Fruit Supplement 1 dose PO DAILY 11/25/23 02/19/25 History amlodipine 5 mg tablet 5 mg PO DAILY #90 tabs 05/27/24 02/19/25 Rx melatonin 10 mg tablet 10 mg PO HS 01/06/25 02/19/25 History lisinopril 40 mg tablet 40 mg PO DAILY #90 tabs 02/12/25 02/19/25 Rx keratin 500 mg PO DIRECTED 02/19/25 02/19/25 History trazodone 50 mg tablet 50 mg PO HS PRN insomnia 02/19/25 02/19/25 History Patient History Medical History Hypertension Surgical History H/O lumpectomy H/O removal of cyst Family History Sister Breast cancer Father Heart disease Other Colon cancer Denies family history of Ovarian cancer Prostate cancer Myocardial infarction Social History Smoking Status: Never smoker Second Hand Exposure: No; Do You Dip or Chew Tobacco: No; Hx Alcohol Use: No Hx Substance Use: No Preferred Language: [place] Communication Ability: Effective Visual Impairment: Partially Limited Hearing Ability: Normal Manager Configuration Required: No Beliefs That Will Affect Care: None marital status: / Current Living Situation: Alone current occupational status: retired How many Children do You have: 3 Other Information That Helps Us Care for You: No Feels Safe at Home: Yes Safety Concerns: Feels Safe At This Time Childhood Exposure to Second-Hand Smoke: No Diet: regular caffeine: Yes (tea) during the past year weight has: remained stable Dental Care, Regularly: Yes Physical Activity Frequency: Does not Exercise Seatbelt Use: always Sunscreen Use: Yes Do you think of yourself as: straight/heterosexual Assistive Devices: Glasses Review of Systems Review of Systems: Constitutional: Denies weight loss, chills, fever, fatigue. Respiratory: Denies cough, denies shortness of breath. Cardiovascular: Denies chest pain and palpitations. Gastrointestinal: As per history of present illness. Physical Exam Physical Exam: Constitutional: WD/WN, vitals as above Respiratory: normal respiratory effort, lungs clear to auscultation Cardiovascular: RRR, no murmur, no edema Gastrointestinal (Abdomen): normal bowel sounds, soft, nontender, no hepatosplenomegaly. Neurological: Oriented x 3, grossly no focal abnormalities, speech is intact. Results & Data Vital Signs (Past 12 Hours) Vital Signs Temp Pulse Pulse Resp BP Pulse Ox O2 Del Method 02/20/25 07:47 36.7 C 78 18 113/68 94 Room Air 02/20/25 02:54 36.8 C 81 18 112/63 94 Room Air 02/20/25 00:20 97 H 20 139/70 95 Room Air 02/19/25 23:45 36.5 C 101 H 20 161/76 H 95 Room Air 02/19/25 23:28 93 H PG Care Time/CCT Total # of Minutes Spent Total Time Spent with Patient: Total time spent is greater than 50% in coordination of care (as documented) at patient's floor/unit and/or counseling patient: Coding Level of Care Code 59171 INT INP/OBS CARE 2/55MIN Diagnoses Ischemic colitis K55.9 Acute GI bleeding K92.2
[2025-02-20 12:08] LABS: Hematocrit (blood only) 32.1 % (37.0-47.0); Hemoglobin 10.7 g/dl (12.0-16.0)
[2025-02-20] MEDS: ACETAMINOPHEN 325 MG TAB PO PRN (12:14)
--- NOTE | 2025-02-20 12:32 | Electrocardiogram Report ---
Test Reason : Blood Pressure : */* mmHG Vent. Rate : 84 BPM Atrial Rate : 84 BPM P-R Int : 128 ms QRS Dur : 68 ms QT Int : 366 ms P-R-T Axes : 54 -11 23 degrees QTcB Int : 432 ms Normal sinus rhythm Normal ECG No previous ECGs available Confirmed by Oleg Sung ([id number]) on 02/20/2025 12:32:40 PM Referred By: REFERRED SELF Confirmed By: Oleg Sung
[2025-02-20 18:31] LABS: Hematocrit (blood only) 30.5 % (37.0-47.0); Hemoglobin 10.3 g/dl (12.0-16.0)
[2025-02-20 19:55] VITALS: RESP 18
[2025-02-21 06:21] LABS: Hematocrit (blood only) 29.2 % (37.0-47.0); Hemoglobin 9.9 g/dl (12.0-16.0); Mean Corpuscular Hemoglobin 31.3 pg (25.0-34.0); Mean Corpuscular Hgb Conc 33.9 g/dL (32.0-36.0); Mean Corpuscular Volume 92.4 fL (80.0-100.0); Mean Platelet Volume 9.6 fL (9.4-12.4); Platelet Count 154 K/uL (130-400); RDW Coefficient of Variation 13.8 % (11.5-14.5); RDW Standard Deviation 47.4 fL (36.4-46.3); Red Blood Count 3.16 M/uL (4.20-5.40); White Blood Count 7.28 K/ul (4.8-10.8)
[2025-02-21 06:41] LABS: BUN Creatinine Ratio 11.8 (10-20); Calcium 8.2 mg/dl (8.6-10.3); Magnesium 1.8 mg/dl (1.7-2.4); Phosphorus 3.3 mg/dl (2.5-4.9); Potassium 3.6 mmol/L (3.5-5.1)
[2025-02-21 08:06] VITALS: TEMP 98.1
--- NOTE | 2025-02-21 08:35 | Hospitalist Progress Note ---
Date of Service February 21, 2025 Assessment & Plan (1) Acute GI bleeding: (2) Benign essential hypertension: Plan 79-year-old female with history of hypertension, hyperlipidemia, CKD presenting with lower abdominal pain and passage of bright red blood per rectum. Patient hemodynamically stable. Hgb = 12.8, HCT = 38.7. BUN = 29 She had similar episode in 2011 when she had diverticulitis. She had colonoscopy in 2017 and pt reports everything was good and she was told she doesn't need another one in the future. #Acute GI bleedsuspect lower GI bleed. - CT with findings as above, significant for segment of colon with possible colitis versus diverticulitis. Ischemic colitis not completely excluded but thought less likely. Lactate is within normal limits. Patient has history of diverticulosis with diverticular bleed in 2011. - on clears - Hgb trended 12.8 > 10.8 > 9.9, cont to trend at this time - Transfuse for ongoing bleed, symptomatic anemia or hemoglobin less than 8. Consent obtained is in on chart - Stool PCR neg - cont zosyn for possible acute diverticulitis. Augmentin on discharge to complete course - Patient with mild leukocytosis with WBC = 11.6 with elevated neutrophil to lymphocyte ratio. Likely secondary to stress from acute bleed however, will cover for now - Zofran as needed for nausea - Tylenol as needed for pain - GI consultation appreciated - s/p IVF x24 hrs #Hypertensionblood pressure stable Will hold amlodipine and lisinopril for now in setting of active bleed Continue to monitor #CKD IIIb - Cr stable - monitor at this time Admission and Anticipated Discharge Date Admission Date: February 19, 2025 Subjective No acute events overnight States she had a BM today that was brown in color Her lower abdominal pain has resolved Review of Systems Review of Systems: Comprehensive ROS neg Physical Exam Physical Exam: Gen: young-appearing elderly female lying in bed comfortably HEENT: NC/AT, anicteric, slightly dry MM Lungs: CTAB CVS: s1s2nl, RRR Abd: nl bowel sounds, no tenderness / rebound / guarding / rigidity : no coker Ext: no edema Neuro: AAOx3 Psych: calm / cooperative Results & Data Results & Data Vital Signs (Past 12 Hours) Vital Signs Temp Pulse Pulse Resp BP Pulse Ox O2 Del Method 02/21/25 08:05 36.7 C 73 18 131/73 94 Room Air 02/21/25 03:01 36.8 C 72 18 131/71 94 Room Air 02/20/25 22:34 36.9 C 80 18 126/69 94 Room Air 02/20/25 21:45 75 02/20/25 20:42 74 PG Care Time/CCT Total # of Minutes Spent Total Time Spent with Patient: Total time spent is greater than 50% in coordination of care (as documented) at patient's floor/unit and/or counseling patient: Coding Level of Care Code 19917 SUB INP/OBS CARE 2/35MIN Diagnoses Acute GI bleeding K92.2 Benign essential hypertension I10
--- NOTE | 2025-02-21 11:37 | Gastroenterology Progress Note ---
Date of Service February 21, 2025 Assessment & Plan (1) Ischemic colitis: (2) Acute GI bleeding: Plan: Overall symptoms are improving. Recommend to advance diet. Discontinue antibiotics. Follow-up as an outpatient, colonoscopy planned in 6 to 8 weeks. Admission and Anticipated Discharge Date Admission Date: February 19, 2025 Subjective The patient feels better, abdominal pain is resolving. Rectal bleeding is resolving. Hemoglobin stable at 9.9. WBC 7.2 Diet being advanced. Review of Systems Review of Systems: Constitutional: Denies weight loss, chills, fever, fatigue. Respiratory: Denies cough, denies shortness of breath. Cardiovascular: Denies chest pain and palpitations. Gastrointestinal: As per history of present illness. Denies nausea, vomiting, tolerates liquid diet. Physical Exam Physical Exam: Constitutional: WD/WN, vitals as above Respiratory: normal respiratory effort, lungs clear to auscultation Cardiovascular: RRR, no murmur, no edema Gastrointestinal (Abdomen): normal bowel sounds, soft, nontender, no hepatosplenomegaly. Neurological: Oriented x 3, grossly no focal abnormalities, speech is intact. Results & Data Results & Data Vital Signs (Past 12 Hours) Vital Signs Temp Pulse Resp BP Pulse Ox O2 Del Method 02/21/25 08:05 36.7 C 73 18 131/73 94 Room Air 02/21/25 03:01 36.8 C 72 18 131/71 94 Room Air Laboratory Results Reviewed PG Care Time/CCT Total # of Minutes Spent Total Time Spent with Patient: Total time spent is greater than 50% in coordination of care (as documented) at patient's floor/unit and/or counseling patient: Coding Level of Care Code 05615 SUB INP/OBS CARE 2/35MIN Diagnoses Ischemic colitis K55.9 Acute GI bleeding K92.2
[2025-02-21 14:21] LABS: Hematocrit (blood only) 30.6 % (37.0-47.0); Hemoglobin 10.3 g/dl (12.0-16.0)
[2025-02-21 15:53] VITALS: PULSE 78; O2SAT 94
--- NOTE | 2025-02-21 16:20 | Discharge Summary ---
Discharge Summary Date of Service February 21, 2025 Principal Dx & Hospital Course #1 = Principal Diagnosis (1) Acute GI bleeding: (2) Benign essential hypertension: Plan 79-year-old female with history of hypertension, hyperlipidemia, CKD presenting with lower abdominal pain and passage of bright red blood per rectum. Patient hemodynamically stable. Hgb = 12.8, HCT = 38.7. BUN = 29 She had similar episode in 2011 when she had diverticulitis. She had colonoscopy in 2017 and pt reports everything was good and she was told she doesn't need another one in the future. #Acute GI bleedsuspect lower GI bleed. - resolved - CT with findings as above, significant for segment of colon with possible colitis versus diverticulitis. Ischemic colitis not completely excluded but thought less likely. Lactate is within normal limits. Patient has history of diverticulosis with diverticular bleed in 2011. - diet advanced to low fiber and is tolerating well - Hgb trended 12.8 > 10.8 > 9.9 > 10.3, cont to trend at this time - Transfuse for ongoing bleed, symptomatic anemia or hemoglobin less than 8. Consent obtained is in on chart - Stool PCR neg - cont zosyn for possible acute diverticulitis. Augmentin on discharge to complete course (total 7 days) - Patient with mild leukocytosis with WBC = 11.6 with elevated neutrophil to lymphocyte ratio. Likely secondary to stress from acute bleed however, will cover for now - Zofran as needed for nausea - Tylenol as needed for pain - GI consultation appreciated - s/p IVF x24 hrs #Hypertensionblood pressure stable - resume home BP meds Continue to monitor #CKD IIIb - Cr stable - monitor at this time Admission HPI Per Admitting Provider Claudia Wagner is an 79-year-old female with history of hypertension, hyperlipidemia, CKD presenting with diarrhea and bright red blood per rectum. Patient reports that on 02/19/2025 AM at 01:00 she woke with crampy, lower abdominal pain. She went to the bathroom and had watery diarrhea. She did not check to see if there is blood in her stool at that time. She continued to have severe lower abdominal pain and had a syncopal event which patient thinks is secondary to her pain. She called her daughter who came to the house. Patient then had a bowel movement that was liquid stool with bright red blood. Patient continued to have crampy lower abdominal pain followed by additional bloody bowel movements. Cramping relieved by bowel movement. Patient denies chest pain, shortness of breath, lightheadedness. Denies nausea/vomiting/hematemesis or coffee-ground emesis. No recent steroid use, NSAID use, antiplatelet or anticoagulation. No alcohol use. Patient does report having a lower GI bleed in 2011 secondary to diverticulosis. Last colonoscopy performed in 2017, unremarkable In the ER patient afebrile, hemodynamically stable (heart rate mildly elevated at 90) ER course: normal saline x 1 L Discharge Exam Gen: young-appearing elderly female lying in bed comfortably HEENT: NC/AT, anicteric, slightly dry MM Lungs: CTAB CVS: s1s2nl, RRR Abd: nl bowel sounds, no tenderness / rebound / guarding / rigidity : no ckoer Ext: no edema Neuro: AAOx3 Psych: calm / cooperative Discharge Plan Discharge Items Patient Disposition: Home - Self-Care Reason For Visit: GIB Discharge Diagnosis: LGIB Diverticulitis Activity: Resume your previous activity Non-emergency contact: Primary Care Provider Call non-emergency contact if: you have any medication questions and your symptoms worsen Follow-up/Referrals: Livier Horn MD [Primary Care Provider] - Diet: Heart Healthy and Low Fiber Addtl Attending Provider Instructions: Follow up with PCP in 7 to 10 days Rpt Hemoglobin check in 3 days Follow up with your GI doctor within 6 weeks after discharge Pending Studies at Discharge: No Stand-Alone Forms: My [address], Smoking Cessation Medications and DC Order Prescriptions: New amoxicillin-pot clavulanate 875-125 mg tablet 1 tab PO BID Qty: 10 0RF Continued cranberry 500 mg capsule 1,000 mg PO DAILY Rx Instructions: otc unable to verify administer with meals Vegetable/Fruit Supplement 1 dose PO DAILY Rx Instructions: otc unable to verify melatonin 10 mg tablet 10 mg PO HS Rx Instructions: also takes 5 mg with it 02/19-otc unable to verify biotin 10,000 mcg capsule 10,000 mcg PO DIRECTED Rx Instructions: otc unable to verify amlodipine 5 mg tablet 5 mg PO DAILY Qty: 90 3RF lisinopril 40 mg tablet 40 mg PO DAILY Qty: 90 1RF trazodone 50 mg tablet 50 mg PO HS PRN (Reason: insomnia) Rx Instructions: TAKE 1 TABLET BY MOUTH AT BEDTIME NEEDED FOR SLEEP PRN; keratin 500 mg PO DIRECTED Rx Instructions: otc unable to verify Discharge Orders: Discharge Order (Routine); Ordered 02/21/25 Ordered By: Jessica Julien Admission Data Admit Date/Time: 02/19/25 21:55 Attending Provider: Jessica Julien Admit Provider: Madisyn Mix Primary Care Provider: Livier Horn Other Providers: Tito Moscoso I; Madisyn Mix Hospital Stay Data Consultations 02/19/25 21:22 ED Decision to Admit Stat 02/19/25 21:55 Consult Gastroenterology Routine Diagnostic Imagining Performed 02/19/25 18:38 CT abd pelvis IV con only Stat Discharge Instructions Given to Patient (Per Discharging Provider) Follow up with PCP in 7 to 10 days Rpt Hemoglobin check in 3 days Follow up with your GI doctor within 6 weeks after discharge Total Time Total Time Spent Total Time Spent (In Minutes): 35 Coding Level of Care Code 19359 INP/OBS DISCH >30 MIN Diagnoses Acute GI bleeding K92.2 Benign essential hypertension I10
[2025-02-21 17:57] VITALS: BP 128/71
== END 2025-02-21 17:57 | disposition home or self-care (01) | DRG 377 ==
LOC: ED 17:19 → SUATTDRO 21:55 → 4W 21:55